=== PATIENT | female | born 1980 ===

== ENCOUNTER 2018-06-09 12:34 | Inpatient (IN) | payer OTHER ==
[~2018-06-09] VITALS: Ht 172.7 cm; Wt 77.0 kg
[2018-06-09 13:13] LABS: BASOPHILS ABSOLUTE AUTO 0.01 K/mm3 (0.00-0.23); BASOPHILS PERCENT AUTO 0 % (0-2); EOSINOPHILS PERCENT AUTO 0 % (0-6); Hemoglobin 13.5 g/dL (11.5-16.0); Mean Corpuscular HGB Conc 34.6 g/dL (31.5-36.5); Mean Corpuscular Volume 90 fL (80-100); Mean Platelet Volume 10.3 fL (9.1-12.4); Platelet Count 106 K/mm3 (150-400); RDW Coefficient Variation 12.3 % (11.7-14.2); RDW Standard Deviation 40.7 fL (35.1-46.3); Red Blood Cell Count 4.35 M/mm3 (3.80-5.20); White Blood Cell Count 3.22 K/mm3 (4.00-11.30)
[2018-06-09 13:29] LABS: Alanine Aminotransfer (ALT/SGP 35 U/L (12-78); Albumin, Blood 2.9 g/dL (3.4-5.0); Albumin/Globulin Ratio 0.7 (0.8-1.8); Alk Phos 45 U/L (50-136); Anion Gap 10 mmol/L (6-16); Aspartate Aminotrans (AST/SGOT 99 U/L (12-37); Bilirubin, Total 0.5 mg/dL (0.1-1.0); Blood Urea Nitrogen 11 mg/dL (8-24); Bun/Creatinine Ratio 12.9 (12.0-20.0); CO2, Blood 25 mmol/L (21-32); Calcium, Blood 7.9 mg/dL (8.5-10.1); Chloride, Blood 99 mmol/L (98-108); Creatinine, Blood 0.85 mg/dL (0.40-1.00); Glomerular Filtration Rate >60 (60-); Glucose, Blood 91 mg/dL (70-99); Potassium, Blood 3.1 mmol/L (3.5-5.5); Sodium, Blood 134 mmol/L (136-145); Total Protein, Blood 6.9 g/dL (6.4-8.2)
[2018-06-09 14:27] LABS: Source, Urine Catheter
[2018-06-09 14:56] LABS: IMMATURE GRAN ABSOLUTE AUTO 0.02 K/mm3 (0.00-0.10); IMMATURE GRAN PERCENT AUTO 1 % (0-1); LYMPHOCYTES ABSOLUTE AUTO 0.82 K/mm3 (0.84-5.20); LYMPHOCYTES PERCENT AUTO 26 % (21-46); MONOCYTES ABSOLUTE AUTO 0.25 K/mm3 (0.16-1.47); MONOCYTES PERCENT AUTO 8 % (4-13); NEUTROPHILS ABSOLUTE AUTO 2.12 K/mm3 (1.96-9.15); NEUTROPHILS PERCENT AUTO 66 % (41-73)
[2018-06-09 15:16] LABS: Appearance, Urine Clear (Clear); Bilirubin, Urine Neg (Neg); Blood, Urine 2+ (Neg); Color, Urine Yellow (P-Yellow); Glucose Qualitative, Urine Neg (Neg); Ketones, Urine 1+ (Neg); Leukocyte Esterase, Urine Neg (Neg); Nitrite, Urine Neg (Neg); Protein, Urine Neg (Neg); Urobilinogen, Urine NORM (Normal)
[2018-06-09 15:56] LABS: Bacteria Few /hpf; Red Blood Cells, Urine 0-2 /hpf (0-2); Squamous Epithelial Cells Rare /hpf (Few)
--- NOTE | 2018-06-09 17:06 | NUR ---
PATIENT GAVE CONSENT AT 1505 FOR WARDROBE MISTRESS TO PARTICIPATE IN CARE ON 06/10/18
[2018-06-09 19:05] LABS: Influenza A Negative (NEGATIVE); Influenza B Negative (NEGATIVE)
--- NOTE | 2018-06-10 03:32 | NUR ---
SUMMARY: A/OX4, INDEPENDENT IN ROOM AND SPECIFIES NEEDS. FLU (-) SO WAS TAKEN OUT OF DROPLET ISO. SHE CONT'S TO RECIEVE LR AT 150 ML/HR W/DAILY IV ABX FOR PNM. TESSALON PERLS PROVIDED PRN X1 FOR COUGH. PT REPORTED THICK YELLOW SPUTUM BUT WASN'T OBSERVED BY RN. SHE SLEPT SOUNDLY UNTIL 0300 BUT AWOKE W/SPO2 88% SO WAS TITRATED TO 3L O2, PT DOESN'T USE O2 AT HOME. LS ARE INTERMITTENTLY WHEEZY W/SCATTERED FINE CRACKLES BUT CLEARS SECRETIONS W/COUGHING, NEB TX'S PROVIDED BY RT PER EMAR. PT DENIED NEEDING PAIN MEDS. NO ACUTE CHANGES, VSS AND AFEBRILE. WILL MONITOR AND REPORT TO DAY RN.
[2018-06-10 05:24] LABS: BASOPHILS ABSOLUTE AUTO 0.01 K/mm3 (0.00-0.23); BASOPHILS PERCENT AUTO 1 % (0-2); EOSINOPHILS PERCENT AUTO 0 % (0-6); Hematocrit 36.7 % (33.0-51.0); Hemoglobin 12.5 g/dL (11.5-16.0); IMMATURE GRAN ABSOLUTE AUTO 0.02 K/mm3 (0.00-0.10); IMMATURE GRAN PERCENT AUTO 1 % (0-1); LYMPHOCYTES ABSOLUTE AUTO 0.62 K/mm3 (0.84-5.20); LYMPHOCYTES PERCENT AUTO 34 % (21-46); MONOCYTES ABSOLUTE AUTO 0.32 K/mm3 (0.16-1.47); MONOCYTES PERCENT AUTO 17 % (4-13); Mean Corpuscular HGB Conc 34.1 g/dL (31.5-36.5); Mean Corpuscular Volume 91 fL (80-100); NEUTROPHILS ABSOLUTE AUTO 0.87 K/mm3 (1.96-9.15); NEUTROPHILS PERCENT AUTO 47 % (41-73); Platelet Count 109 K/mm3 (150-400); RDW Coefficient Variation 12.3 % (11.7-14.2); RDW Standard Deviation 41.6 fL (35.1-46.3); Red Blood Cell Count 4.03 M/mm3 (3.80-5.20); White Blood Cell Count 1.84 K/mm3 (4.00-11.30)
[2018-06-10 05:45] LABS: Anion Gap 8 mmol/L (6-16); Blood Urea Nitrogen 7 mg/dL (8-24); Bun/Creatinine Ratio 11.1 (12.0-20.0); CO2, Blood 25 mmol/L (21-32); Calcium, Blood 7.8 mg/dL (8.5-10.1); Chloride, Blood 108 mmol/L (98-108); Creatinine, Blood 0.63 mg/dL (0.40-1.00); Glomerular Filtration Rate >60 (60-); Glucose, Blood 137 mg/dL (70-99); Potassium, Blood 4.3 mmol/L (3.5-5.5); Sodium, Blood 141 mmol/L (136-145)
[2018-06-10 12:44] LABS: PCO2 Arterial 34.5 mmHg (35-45); PO2 Arterial 79.7 mmHg (80-100)
--- NOTE | 2018-06-10 14:16 | NUR ---
PAtient was sitting up in bed and alert when I entered the room. Patient welcomed me into the room after I introduced myself. Patient shared openly about her health, her spiritual journey and her family. I listened empathically, provided companionship, reinforced helpful attitudes and practices, celebrated the victories and wins and provided prayer. Patient responded well and displayed evidence of elevated lauren and peace. Patient thanked me for the visit.
--- NOTE | 2018-06-10 18:50 | NUR ---
PT A/OX3, PLEASANT AND COOPERATIVE, UP IND IN HER ROOM, THIS AM THE PT WAS UP TO 6L/MIN O2 VIA NC, THIS EVENING THE PT HAS BEEN MAINTAINING > 92% SATS AT 3L/MIN, PT WAS ENCOURAGED TO USE THE INSENTIVE SPIROMETER T/O THE DAY AND DID SO, THE PT WAS GIVEN BREATHING TX'S T/O THE DAY, PT WAS MEDICATED FOR HEAD ACHE WITH TYLENOL X2 TODAY, CALL LIGHT IN REACH WILL CONTINUE TO MONITOR AND ASSESS FOR CHANGES
--- NOTE | 2018-06-10 22:58 | NUR ---
PATIENT STATING 87-90% ON 3L O2 N/C HUMIDIFIED. PATIENT REPORTS SHE WANTS A BREATHING TX. RT NOTIFIED. PATIENT WATCHING TV. CALL LIGHT IN REACH. WILL CONTINUE TO MONITOR.
--- NOTE | 2018-06-10 23:05 | NUR ---
RT REPORTS CHANGE PATIENT O2 FLOW RATE FROM 3L TO 5L NC AND STATING 90-92% ON CONTINUOUS PULSE OXIMETRY. PATIENT RECEIVING BREATHING TX. O2 HUMIDIFIED. CALL LIGHT IN REACH. WILL CONTINUE TO MONITOR.
--- NOTE | 2018-06-10 23:27 | NUR ---
RT REPORTS PATIENT DESTATING ON 5L O2 NC AND CHANGED TO 7L O2 OXIMIZER. STATING 88-89% WITH AND OCCASIONALLY 90% TO START. WILL CONTINUE TO MONITOR. PATIENT AXOX 4. CALL LIGHT IN REACH.
--- NOTE | 2018-06-10 23:49 | NUR ---
PATIENT STATING 90% ON 7L OXIMIZER PER RT. HR 64-66. SOLU-MEDROL GIVEN PER EMAR. PATIENT RESTING AND READY FOR SLEEP. CALL LIGHT IN REACH. WILL CONTINUE TO MONITOR.
--- NOTE | 2018-06-11 02:32 | NUR ---
PATIENT STATING 89-90% ON 7L O2 OXIMIZER. OCCASIONAL DROP TO 87% AND INCREASE TO 91% AT TIMES. PATIENT SLEEPING. CALL LIGHT IN REACH. WILL CONTINUE TO MONITOR.
--- NOTE | 2018-06-11 03:10 | NUR ---
PATIENT UP AND REPORTING ABDOMEN/LUNG PAIN FROM COUGHING EPISODE. TYLENOL AND TESSOLON GIVEN PER EMAR. PATIENT'S RESPIRATIONS INCREASED DURING THE EPISODE AND HAD NAUSEA. PATIENT ABLE TO SLOW RESPIRATIONS DOWN BY RELAXING AND NAUSEA WENT AWAY. STATING 88% ON 7L O2 OXIMIZER. CALL LIGHT IN REACH. WILL CONTINUE TO MONITOR.
--- NOTE | 2018-06-11 04:44 | NUR ---
SHIFT SUMMARY PATIENT DESTATING THIS SHIFT. PATIENT REPORTED SHE NEEDED A BREATHING TX. RT NOTIFIED. PATIENT STATING 87-90% ON 3L AND RT CHANGED TO 5L O2 NC HUMIDIFIED. RT REPORTS PATIENT STILL STATING 87-90% BUT NOT MAINTAINING AND PUT PATIENT ON 7L O2 OXIMIZER. PATIENT HAS BEEN STATING AT 90% MOST OF THE SHIFT. PATIENT HAD ONE COUGHING EPISODE AND REPORTED ABDOMEN/LUNG PAIN FROM THE EVENT. TYLENOL AND TESSALON GIVEN PER EMAR. RESPIRATIONS HAD INCREASED AND HAD NAUSEA. PATIENT ABLE TO RELAX AND SLOW BREATHING DOWN AND NAUSEA WENT AWAY. PIV REMAINS INTACT. SOLU-MEDROL GIVEN PER EMAR. COOPERATIVE WITH CARE. AFEBRILE. CALL LIGHT IN REACH. BED IN LOWEST POSITION. WILL CONTINUE TO MONITOR UNTIL DAY SHIFT NURSE ASSUMES CARE.
[2018-06-11 05:21] LABS: Hematocrit 33.4 % (33.0-51.0); Hemoglobin 11.3 g/dL (11.5-16.0); Mean Corpuscular HGB Conc 33.8 g/dL (31.5-36.5); Mean Corpuscular Volume 92 fL (80-100); Mean Platelet Volume 10.2 fL (9.1-12.4); Platelet Count 166 K/mm3 (150-400); RDW Coefficient Variation 12.4 % (11.7-14.2); RDW Standard Deviation 41.5 fL (35.1-46.3); Red Blood Cell Count 3.65 M/mm3 (3.80-5.20); White Blood Cell Count 6.66 K/mm3 (4.00-11.30)
[2018-06-11 05:56] LABS: BAND PERCENT MAN 4 % (0-8); BASOPHILS PERCENT MAN 0 % (0-2); EOSINOPHILS PERCENT MAN 0 % (0-6); LYMPHOCYTES ABSOLUTE MAN 0.59 K/mm3 (0.84-5.20); LYMPHOCYTES PERCENT MAN 9 % (21-46); MONOCYTES ABSOLUTE MAN 0.46 K/mm3 (0.16-1.47); MONOCYTES PERCENT MAN 7 % (4-13); NEUTROPHILS ABSOLUTE MAN 5.59 K/mm3 (1.96-9.15); SEG NEUTROPHILS PERCENT MAN 80 % (41-73); TOTAL CELLS COUNTED 100
--- NOTE | 2018-06-11 06:23 | NUR ---
PATIENT OUT OF ROOM FOR 2 VIEW CXR. TRANSPORTED VIA W/C ON 7L O2 OXIMIZER.
[2018-06-11 06:28] LABS: Albumin, Blood 2.4 g/dL (3.4-5.0); Anion Gap 7 mmol/L (6-16); Blood Urea Nitrogen 11 mg/dL (8-24); Bun/Creatinine Ratio 18.1 (12.0-20.0); CO2, Blood 26 mmol/L (21-32); Calcium, Blood 7.7 mg/dL (8.5-10.1); Chloride, Blood 109 mmol/L (98-108); Creatinine, Blood 0.61 mg/dL (0.40-1.00); Glomerular Filtration Rate >60 (60-); Glucose, Blood 143 mg/dL (70-99); Phosphorus, Blood 3.1 mg/dL (2.5-4.9); Potassium, Blood 3.7 mmol/L (3.5-5.5); Sodium, Blood 142 mmol/L (136-145)
--- NOTE | 2018-06-11 06:36 | NUR ---
PATIENT BACK FROM IMAGING VIA W/C. TOLERATED WELL. CALL LIGHT IN REACH.
--- NOTE | 2018-06-11 18:46 | NUR ---
SHIFT SUMMARY: NO ACUTE CHANGES TO REPORT THIS SHIFT. PT A&O; CALM AND COOPERATIVE WITH CARE. PT INDEPENDENT IN ROOM. BLL PNA; TESSALON AMBAR TIDP FOR COUGH; LUNGS DIM/ CRACKLES ON L. IV STEROID & ABX; PO ABX CONTINUING. WCTM.
--- NOTE | 2018-06-12 04:04 | NUR ---
SHIFT SUMMARY PATIENT HAD NO ACUTE CHANGES OBSERVED DURING THE SHIFT. STATING 90-93% ON 7L O2 OXIMIZER ON CONTINUOUS PULSE OXIMETRY. AXOX 4 AND INDEPENDENT IN THE ROOM. TESSALON GIVEN FOR COUGH X ONE. TYLENOL GIVEN X ONE FOR INIGUEZ. RT IN BREATHING TX AND TO ADJUST ALARM ON CONT BIOX FOR HR. SOLU-MEDROL GIVEN PER EMAR. VSS/AFEBRILE. COOPERATIVE WITH CARE. CALL LIGHT IN REACH. BED IN LOWEST POSITION. WILL CONTINUE TO MONITOR UNTIL DAY SHIFT NURSE ASSUMES CARE.
--- NOTE | 2018-06-12 05:51 | NUR ---
PATIENT STATING 93-94% IMPROVEMENT FROM 90% LAST NOCX SHIFT ON 7L O2 OXIMIZER; CONTINUOUS PULSE OXIMETRY. SOLU-MEDROL GIVEN PER EMAR. CALL LIGHT IN REACH. WILL CONTINUE TO MONITOR.
--- NOTE | 2018-06-12 18:26 | NUR ---
SHIFT SUMMARY: NO ACUTE CHANGES TO REPORT THIS SHIFT. PT A&O; CALM AND COOEPRATIVE WITH CARE; INDEPENDENT IN ROOM. PT REMAINS ON 7L O2 VIA HIGH-FLOW NC. PO & IV ABX; SOLU-MEDROL CONTINUING. WCTM.
--- NOTE | 2018-06-13 04:57 | NUR ---
SHIFT SUMMARY: PT IS ALERT AND ORIENTED. PT IS CALM AND COOPERATIVE WITH CARE. PT CALLS APPROPRIATELY. PT IS INDEPENDENT IN THE ROOM. PT REMAINS SOB UPON EXERTION AND WITH COUGH, O2 DOWN TO 4 L/MIN, SATS IN THE LOW 90'S, GAVE PRN COUGH SUPPRESSANT. LUNGS HAVE CRACKLES IN THE BASES. PT DENIES PAIN, NAUSEA, AND VOMITING. PT SLEPT MUCH OF THE NIGHT WHEN NOT DISTURBED. NO ACUTE CHANGES OR COMPLICATIONS THIS SHIFT. BED IN LOW POSITION, CALL LIGHT WITHIN REACH. WILL REPORT TO DAY NURSE.
--- NOTE | 2018-06-13 17:10 | NUR ---
PT REPORTS A SEVERE 9/10 HEADACHE THAT CAME OUT OF NO WHERE. PT HOLDING HER HEAD AND ALMOST IN TEARS. PRN TYLRNOL GIVEN. DR SINCLAIR NOTIFIED AND ONE TIME DOSE OF FIORINOL ORDERED.
--- NOTE | 2018-06-13 17:33 | NUR ---
SHIFT SUMMARY- PT A/OX4, INDEP IN ROOM. LS DIMINISHED IN THE UPPER WITH FINE CRACKLES IN THE BASES, PT NOW ON 3L N/C, OCC PRODUCTIVE THIN YELLOW STREAKED WITH BLOOD SPUTUM. CONT BIOX. PT USING I.S. AND FLUTTER AT BEDSIDE. HRR. PT WITH SEVERE HEADACHE THIS AFTERNOON, PRN TYLENOL WELL ONE TIME DOSE OF FIORINOL GIVEN. POSS D/C HOME TOMORROW OR FRIDAY, WILL NEED HOME EVAL COMPLETED. NEW IV PLACED LFA. NO OTHER ACUTE CHANGES THIS SHIFT.
--- NOTE | 2018-06-13 18:38 | NUR ---
HEADACHE- PT REPORTS A CONTINUED 7/10 PAIN HEADACHE AFTER THE TYLENOL AND FIORINOL. PT REPORTS PAIN TO FRONT OF HEAD AND AROUND EYES. PT REPORTED NAUSEA WITH THIS. PT REPORTS IF SHES UP PACING IN ROOM THAT IT IMPROVES BUT SOON SHE SITS DOWN IT WORSENS. SHE REPORTS SHE NOTICED IT SLIGHTLY THIS AM AFTER A DOSE OF SOLUMEDROL AND REPORTS FEELING "HIGH" WITH IT BUT STATES THIS CAME ON SUDDENLY ABOUT 30 MINTUES AFTER SOLUMEDROL DOSE THIS AFTERNOON. PT REPORTS SHE DOES NOT WANT ANYMORE SOLUMEDROL AT THIS TIME, SOLUMEDROL WAS CHANGED TO DAILY THIS EVENING BY DR PLA. PT CONCERNED BECAUSE HER SISTER WENT TEMPORARILY BLIND FROM PREDNISONE. DR SINCLAIR NOTIIIED OF PT'S CONCERNS. DR SINCLAIR STATED SHE WILL SWITCH HER TO PREDNISONE IN THE AM AND STOP SOLUMEDROL. ONE TIME DOSE OF SC IMITREX ORDERED AT THIS TIME.
--- NOTE | 2018-06-14 05:27 | NUR ---
SHIFT SUMMARY: PT IS ALERT AND ORIENTED. PT IS CALM AND COOPERATIVE WITH CARE. PT IS INDEPENDENT IN THE ROOM. PT CALLS APPROPRIATELY. PT HAVING MIGRAINE AT START OF SHIFT, GAVE ONE TIME DOSE OF IMITREX, CONDITION RESOLVED. PT REPORTED EPISODE OF EMESIS DURING THE MIGRAINE ATTACK. NO FURTHER PAIN AFTER THE MIGRAINE RESOLVED. PT REPORTS IMPROVED BREATHING, DOWN TO 1 L O2 PRN. PT SLEPT MUCH OF THE NIGHT. BED IN LOW POSITION, CALL LIGHT WITHIN REACH. WILL REPORT TO DAY NURSE.
[2018-06-14 06:37] LABS: Anion Gap 6 mmol/L (6-16); Blood Urea Nitrogen 15 mg/dL (8-24); Bun/Creatinine Ratio 25.5 (12.0-20.0); CO2, Blood 30 mmol/L (21-32); Calcium, Blood 7.7 mg/dL (8.5-10.1); Chloride, Blood 106 mmol/L (98-108); Creatinine, Blood 0.59 mg/dL (0.40-1.00); Glomerular Filtration Rate >60 (60-); Glucose, Blood 104 mg/dL (70-99); Potassium, Blood 3.4 mmol/L (3.5-5.5); Sodium, Blood 142 mmol/L (136-145)
--- NOTE | 2018-06-14 07:46 | NUR ---
ASSUMED CARE: PT RESTING IN BED. BEDSIDE REPORT GIVEN. STATES SHE STILL HAS A SLIGHT HEADACHE AND A SLIGHT BLOODY NOSE THAT HAS RESOLVED. STATES SHE IS GOING TO DISCUSS PREDNISONE WITH DR SINCLAIR BEFORE SHE TAKES IT DUE TO HAVING A FAMILY HISTORY OF REACTIONS TO STEROIDS. NO FURTHER NEEDS OR CONCERNS AT THIS TIME.
[2018-06-14] MEDS ORDERED: ACET325 PO (09:13)
[2018-06-14] MEDS ORDERED: BENZ100A PO (09:14)
[2018-06-14] MEDS ORDERED: ALBU2.5V5 NEB (09:14)
[2018-06-14] MEDS ORDERED: Acidophilus La100 GM PO (09:15)
[2018-06-14] MEDS ORDERED: PRED10 PO (09:16)
[2018-06-14] MEDS ORDERED: DEEP SEA44 ML (09:17)
[2018-06-14] MEDS ORDERED: Butalbital-Asa1 EAC1 PO (09:18)
--- NOTE | 2018-06-14 12:00 | NUR ---
PT'S HOME O2 EVALUATION PAPERS AND ORDERS FAXED TO [facility] ORDERS. IV DC'D WNL. PT WAS CONCERNED ABOUT PREDNISONE WITH FAMILY HISTORY. REMINDED HER THAT SHE HAD TODAY'S DOSE AND TO CALL HER PCP'S OFFICE TO DISCUSS FURTHER WELL TO SCHEDULE FOLLOW UP AND XRAY. PT DENIED FURTHER QUESTIONS OR CONCERNS. TRANSFERRED OUT VIA WHEEL CHAIR BY HOSPITAL STAFF.
== END 2018-06-14 11:56 | disposition home or self-care (01) | DRG 193 ==
LOC: ER 12:34 → MEDS 14:42 → ENPENDDIS 06-14 08:01 → MEDS 06-14 11:56
PROVIDERS: Emergency Medicine; Physician Assistant; ADMIT Internal Medicine
DX: J18.9 Pneumonia, unspecified organism (principal); J96.01 Acute respiratory failure with hypoxia; E87.1 Hypo-osmolality and hyponatremia; E83.51 Hypocalcemia; E87.6 Hypokalemia; J45.909 Unspecified asthma, uncomplicated; Z87.891 Personal history of nicotine dependence
CPT/HCPCS: 36415; 36600; 71045; 71046; 80048; 80053; 80069; 81001; 82607; 82746; 82803; 83605; 84703; 85007; 85025; 85027; 87040; 87070; 87086; 87205; 87804; 94640; 94660; 94761; 94762; 96361; 96374; 99285-25; J0456; J0696; J1650; J2405; J2920; J2930; J7030; J7050; J7120